=== PATIENT | female | born 1980 | race Caucasian/White ===

== ENCOUNTER 2017-03-10 22:07 | Emergency (ER) | payer SELFPAY ==
[2017-03-10 22:30] VITALS: BP 150/65; PULSE 87; TEMP 98.4; BMI 29.1
--- NOTE | 2017-03-10 23:17 | PDOC ---
History of Present Illness - History of Present Illness Initial Comments: 03/11/17 00:05 Patient is a 37 year old female with no significant medical hx who is presenting to the ED for right eye swelling since today. Patient reports she went to her doctor and was prescribed antibiotics and pain medication for strep throat. The patient picked up the ibuprofen from the pharmacy but could not afford the antibiotics. She began taking the ibuprofen and developed swelling to her right eyelid which she suspects is an allergic reaction. Denies any wheezing or rash. The patient was asked in [place] of [place] if she had any allergies to medication, which she denied, and was asked if she could be given penicillin, which she accepted. The patient states she's breast feeding. The patient also fell one week ago and since has been having left rib cage pain with some shortness of breath. She states that her PMD wants her to receive a chest x-ray. PCP: Viola Light MD <Veronika Ingram - Last Filed: 03/11/17 00:15> <Lynda Ruiz - Last Filed: 03/15/17 16:50> - General Chief Complaint: Allergic Reaction Stated Complaint: ALLERGIC REACTION Time Seen by Provider: 03/10/17 22:46 Past History <Veronika Ingram - Last Filed: 03/11/17 00:15> - Psycho/Social/Smoking Cessation Hx Anxiety: No Suicidal Ideation: No Smoking History: Never smoked Have you smoked in the past 12 months: No Information on smoking cessation initiated: No Hx Alcohol Use: No Drug/Substance Use Hx: No Substance Use Type: None <Lynda Ruiz - Last Filed: 03/15/17 16:50> - Past Medical History Allergies/Adverse Reactions: Allergies Allergy/AdvReac Type Severity Reaction Status Date / Time No Known Allergies Allergy Verified 03/10/17 22:29 Review of Systems - Review of Systems Comments:: 03/11/17 00:08 CONSTITUTIONAL: Absent: fever, chills, diaphoresis, generalized weakness, malaise, loss of appetite HEENT: Present: right eyelid swelling, throat pain Absent: rhinorrhea, nasal congestion, mouth swelling, ear pain, eye pain, visual changes CARDIOVASCULAR: Absent: chest pain, syncope, palpitations, irregular heart rate, lightheadedness , peripheral edema RESPIRATORY: Present: shortness of breath Absent: cough, dyspnea with exertion, orthopnea, wheezing, stridor, hemoptysis GASTROINTESTINAL: Absent: abdominal pain, abdominal distension, nausea, vomiting, diarrhea, constipation, melena, hematochezia GENITOURINARY: Absent: dysuria, frequency, urgency, hesitancy, hematuria, flank pain, genital pain MUSCULOSKELETAL: Present: left rib cage pain Absent: myalgia, arthralgia, joint swelling SKIN: Absent: rash, itching, pallor HEMATOLOGIC/IMMUNOLOGIC: Absent: easy bleeding, easy bruising, lymphadenopathy, frequent infections ENDOCRINE: Absent: unexplained weight gain, unexplained weight loss, heat intolerance, cold intolerance NEUROLOGIC: Absent: headache, focal weakness or paresthesia, dizziness, unsteady gait, seizure, mental status changes, bladder or bowel incontinence. PSYCHIATRIC: Absent: anxiety, depression, suicidal or homicidal ideation, hallucinations <Veronika Ingram - Last Filed: 03/11/17 00:15> *Physical Exam - Vital Signs Last Vital Signs Temp Pulse Resp BP Pulse Ox 98.4 F 87 18 150/65 99 03/10/17 22:27 03/10/17 22:27 03/10/17 22:27 03/10/17 22:27 03/10/17 22:27 - Physical Exam Comments: 03/11/17 00:11 GENERAL: Well developed, well nourished. Awake and alert. No acute distress. HEENT: Normocephalic, atraumatic. PERRLA, EOMI. Edematous swelling to right eyelid. No conjunctival pallor. Sclera are non-icteric. Moist mucous membranes. Erythema and exudates to the oropharynx with enlarged tonsils. NECK: Supple. Full ROM. No JVD. Carotid pulses 2+ and symmetric, without bruits. No thyromegaly. No lymphadenopathy. CARDIOVASCULAR: Regular rate and rhythm. No murmurs, rubs, or gallops. Distal pulses are 2+ and symmetric. PULMONARY: No evidence of respiratory distress. Lungs clear to auscultation bilaterally. No wheezing, rales or rhonchi. ABDOMINAL: Soft. Non-tender. Non-distended. No rebound or guarding. No organomegaly. Normoactive bowel sounds. MUSCULOSKELETAL: Normal range of motion at all joints. No bony deformities or tenderness. No CVA tenderness. EXTREMITIES: No cyanosis. No clubbing. No edema. No calf tenderness. SKIN: Warm and dry. Normal capillary refill. No rashes. No jaundice. NEUROLOGICAL: Alert, awake, appropriate. Cranial nerves 2-12 intact. Normal speech. Gait is normal without ataxia. PSYCHIATRIC: Cooperative. Good eye contact. Appropriate mood and affect. <Veronika Ingram - Last Filed: 03/11/17 00:15> - Vital Signs Last Vital Signs Temp Pulse Resp BP Pulse Ox 98.4 F 87 18 150/65 99 03/10/17 22:27 03/10/17 22:27 03/10/17 22:27 03/10/17 22:27 03/10/17 22:27 <Lynda Ruiz - Last Filed: 03/15/17 16:50> ED Treatment Course - Medications Given in the ED: ED Medications Discontinued Medications Generic Name Dose Route Start Last Admin Trade Name Freq PRN Reason Stop Dose Admin Diphenhydramine HCl 25 mg 03/10/17 23:18 03/10/17 23:37 Benadryl - PO 03/10/17 23:19 25 mg ONCE ONE Administration Prednisone 40 mg 03/10/17 23:18 03/10/17 23:37 Deltasone - PO 03/10/17 23:19 40 mg ONCE ONE Administration <Veronika Ingram - Last Filed: 03/11/17 00:15> Medical Decision Making - Medical Decision Making 03/11/17 03:39 27-year-old female who had been diagnosed earlier today with pharyngitis went to the pharmacy and fill the prescription for ibuprofen. She did not have enough money to also febrile prescription for antibiotics. Abscess taking her Motrin. She knows she had eyelid swelling. He is the emergency department. Patient received prednisone and Benadryl. Ice pack was placed on her eyelids. The swelling. Decrease. She does not have any wheezing or any risk for respiratory difficulties. Plan further discussion with the patient, it was discussed if she would want to have IM injection of penicillin instead of taking 10 days of oral antibiotics and she agrees with the injection Patient is breast-feeding currently Patient later stated that she fell recently and her PCP gave her a RX for radiolgraph Patient had a negative test and radiograph of her left side was taken. No rib fractures were appreciated IMP pharyngitis/ibuprofen allergy 03/15/17 16:49 <Lynda Ruiz - Last Filed: 03/15/17 16:50> *DC/Admit/Observation/Transfer - Attestations Scribe Attestion: 03/11/17 00:13 Documentation prepared by Veronika Ingram, acting as medical aides teacher for Lynda Ruiz MD. <Veronika Ingram - Last Filed: 03/11/17 00:15> <Lynda Ruiz - Last Filed: 03/15/17 16:50> Diagnosis at time of Disposition: Allergic drug reaction Qualifiers: Encounter type: initial encounter Qualified Code(s): T78.40XA - Allergy, unspecified, initial encounter Pharyngitis Qualifiers: Pharyngitis/tonsillitis etiology: unspecified etiology Qualified Code(s): J02.9 - Acute pharyngitis, unspecified - Discharge Dispostion Disposition: HOME Condition at time of disposition: Stable - Referrals Referrals: Viola Light MD [Primary Care Provider] - - Patient Instructions Printed Discharge Instructions: DI for Adverse Drug Reaction -- Allergic, DI for Strep Throat Additional Instructions: DO NOT TAKE IBUPROFEN Drink cold water,use throat lozenges to help alleviate your throat pain Return for any worsening symptoms Print Language: YI
[2017-03-10] MEDS ORDERED: diphenhydrAMINE HCL 25 MG CAPSULE (FP) PO ONE ×2 (23:18→23:33)
[2017-03-10] MEDS ORDERED: predniSONE 20 MG TABLET (UD) PO ONE (23:18)
[2017-03-10] MEDS ORDERED: predniSONE 20 MG TABLET (UD) ONE (23:33)
[2017-03-11] MEDS ORDERED: PENICILLIN G BENZATHINE 1,200,000 UNIT/2 ML PFS IM ONE (00:03)
[2017-03-11] MEDS ORDERED: predniSONE 20 MG TABLET (UD) PO ONE (02:26)
[2017-03-11] MEDS ORDERED: PENICILLIN G BENZATHINE 2,400,000 UNIT/4 ML PFS ONE (04:12)
[2017-03-11] MEDS ORDERED: predniSONE 20 MG TABLET (UD) ONE (04:12)
== END 2017-03-11 04:44 | disposition home or self-care (01) ==
LOC: JER 22:07
DX: T39.315A Adverse effect of propionic acid derivatives, initial encounter (principal); J02.9 Acute pharyngitis, unspecified; R07.81 Pleurodynia; R07.89 Other chest pain; W19.XXXA Unspecified fall, initial encounter; Y93.89 Activity, other specified; Y92.89 Other specified places as the place of occurrence of the external cause
CPT/HCPCS: 71020-TC; 71101-TC; 84703; 99282-25

== ENCOUNTER 2018-11-27 15:10 | Emergency (ER) | payer SELFPAY ==
[2018-11-27 15:25] VITALS: BP 103/63; PULSE 66; TEMP 98.8; BMI 29.9
--- NOTE | 2018-11-27 16:00 | PDOC ---
History of Present Illness - General History Source: Patient Exam Limitations: No Limitations <Hakeem Hartley - Last Filed: 11/27/18 16:09> - General History Source: Patient Exam Limitations: No Limitations, Language Barrier - History of Present Illness Initial Comments: 11/27/18 16:22 The patient is a 38 year old female, with no significant past medical history of who presents to the emergency department via EMS with chest pain since earlier today. The patient notes she received bad news today that her uncle . After the news, the patient became upset and anxious accompanied by lightheadedness, chest discomfort, difficulty breathing, and generalized weakness. The patient notes EMS, gave her Aspirin. Allergies: NKDA Past surgical history: None reported Social history: None reported <Charles Figueroa - Last Filed: 11/27/18 16:27> - General Chief Complaint: Chest Pain Stated Complaint: CHEST PAIN Time Seen by Provider: 11/27/18 15:28 Past History - Past Medical History COPD: No - Suicide/Smoking/Psychosocial Hx Smoking History: Never smoked Have you smoked in the past 12 months: No Information on smoking cessation initiated: No Hx Alcohol Use: No Drug/Substance Use Hx: No Substance Use Type: None <Hakeem Hartley - Last Filed: 11/27/18 16:09> <Charles Figueroa - Last Filed: 11/27/18 16:27> - Past Medical History Allergies/Adverse Reactions: Allergies Allergy/AdvReac Type Severity Reaction Status Date / Time No Known Allergies Allergy Verified 11/27/18 15:24 Review of Systems - Review of Systems Comments:: 11/27/18 16:23 GENERAL/CONSTITUTIONAL: No fever or chills. (+) generalized weakness. HEAD, EYES, EARS, NOSE AND THROAT: No change in vision. No ear pain or discharge. No sore throat. CARDIOVASCULAR: (+)chest discomfort. (+) difficulty breathing RESPIRATORY: No cough, wheezing, or hemoptysis. GASTROINTESTINAL: No nausea, vomiting, diarrhea or constipation. GENITOURINARY: No dysuria, frequency, or change in urination. MUSCULOSKELETAL: No joint or muscle swelling or pain. No neck or back pain. SKIN: No rash NEUROLOGIC: (+) lightheadedness. No headache, vertigo, loss of consciousness, or change in strength/sensation. ENDOCRINE: No increased thirst. No abnormal weight change. HEMATOLOGIC/LYMPHATIC: No anemia, easy bleeding, or history of blood clots. ALLERGIC/IMMUNOLOGIC: No hives or skin allergy. All Other Systems: Reviewed and Negative <Charles Figueroa - Last Filed: 11/27/18 16:27> *Physical Exam - Vital Signs Last Vital Signs Temp Pulse Resp BP Pulse Ox 98.8 F 66 18 103/63 99 11/27/18 15:23 11/27/18 15:23 11/27/18 15:23 11/27/18 15:23 11/27/18 15:23 <Hakeem Hartley - Last Filed: 11/27/18 16:09> - Vital Signs Last Vital Signs Temp Pulse Resp BP Pulse Ox 98.8 F 66 18 103/63 99 11/27/18 15:23 11/27/18 15:23 11/27/18 15:23 11/27/18 15:23 11/27/18 15:23 - Physical Exam Comments: 11/27/18 16:26 GENERAL: (+) tearful. Awake, alert, and fully oriented, in no acute distress HEAD: No signs of trauma EYES: PERRLA, EOMI, sclera anicteric, conjunctiva clear ENT: Auricles normal inspection, hearing grossly normal, nares patent, oropharynx clear without exudates. Moist mucosa NECK: Normal ROM, supple, no lymphadenopathy, JVD, or masses LUNGS: Breath sounds equal, clear to auscultation bilaterally. No wheezes, and no crackles HEART: Regular rate and rhythm, normal S1 and S2, no murmurs, rubs or gallops ABDOMEN: Soft, nontender, normoactive bowel sounds. No guarding, no rebound. No masses EXTREMITIES: Normal range of motion, no edema. No clubbing or cyanosis. No cords, erythema, or tenderness NEUROLOGICAL: Cranial nerves II through XII grossly intact. Normal speech, normal gait SKIN: Warm, Dry, normal turgor, no rashes or lesions noted. <Charles Figueroa - Last Filed: 11/27/18 16:27> Moderate Sedation - Procedure Monitoring Vital Signs: Procedure Monitoring Vital Signs Temperature 98.8 F 11/27/18 15:23 Pulse Rate 66 11/27/18 15:23 Respiratory Rate 18 11/27/18 15:23 Blood Pressure 103/63 11/27/18 15:23 O2 Sat by Pulse Oximetry (%) 99 11/27/18 15:23 <Hakeem Hartley - Last Filed: 11/27/18 16:09> - Procedure Monitoring Vital Signs: Procedure Monitoring Vital Signs Temperature 98.8 F 11/27/18 15:23 Pulse Rate 66 11/27/18 15:23 Respiratory Rate 18 11/27/18 15:23 Blood Pressure 103/63 11/27/18 15:23 O2 Sat by Pulse Oximetry (%) 99 11/27/18 15:23 <Ion Figueroamaryann - Last Filed: 11/27/18 16:27> Heart Score/ECG Review #1 ECG reviewed & interpreted by me at: 15:20 11/27/18 15:58 NSR 64, no std/patrick, normal axis, normal intervals, T wave flat III, QTC 460 msec. normal ECG <Hakeem Hartley - Last Filed: 11/27/18 16:09> Medical Decision Making - Medical Decision Making 11/27/18 16:09 A portion of this note was documented by scribe services under my direction. I have reviewed the details of the note, within reason, and agree with the documentation with the following case summary and management plan written by me. Patient treated in the ED. Nursing notes are reviewed and incorporated into the medical decision-making. Vital signs reviewed. Peripheral IV access obtained by the nurse, laboratory studies are drawn and sent, reviewed and interpreted by myself. Vital Signs Temp Pulse Resp BP Pulse Ox 98.8 F 66 18 103/63 99 11/27/18 15:23 11/27/18 15:23 11/27/18 15:23 11/27/18 15:23 11/27/18 15:23 38 year old female c/ no pmh p/w atypical chest pain. The patient received news that her uncle that she was very close to had recently today. The patient soon became very upset and anxious, and felt lightheaded and dizzy and with chest discomfort and difficulty breathing and generalized weakness. The patient called EMS which EMS gave her aspirin. She feels tearful now but the patient reports no chest pain. ECG is normal. I feel very much that this is a reaction to her news. She does not smoke. Does not have family history of [place]. No medical problems. We will arrange follow up appointment with PMD for IM. Tanya had scheduled an appointment. Will d/c patient home with supportive care. I discussed the physical exam findings, ancillary test results and final diagnoses with the patient. I answered all of the patient's questions. The patient was satisfied with the care received and felt comfortable with the discharge plan and treatment plan. The patient will call their primary care physician within 24 hours to arrange follow-up and will return to the Emergency Department with any new, persistant or worsening symptoms. <Hakeem Hartley - Last Filed: 11/27/18 16:09> *DC/Admit/Observation/Transfer - Discharge Dispostion Decision to Admit order: No <Hakeem Hartley - Last Filed: 11/27/18 16:09> - Attestations Scribe Attestion: 11/27/18 16:27 Documentation prepared by Charles Figueroa, acting as medical staff credentialing coordinator for Hakeem Hartley MD, MD <Charles Figueroa - Last Filed: 11/27/18 16:27> Diagnosis at time of Disposition: Atypical chest pain - Discharge Dispostion Disposition: HOME Condition at time of disposition: Stable - Referrals Referrals: Mushtaq Ray MD [Staff Physician] - - Patient Instructions Printed Discharge Instructions: DI for Atypical Chest Pain Additional Instructions: Your EKG is normal. Please take several days to rest. I suspect that you discomfort is from the recent stress you experienced. Please go to the doctor's appointment that we have scheduled. Please drink plenty of fluids and rest.
--- NOTE | 2018-11-28 09:28 | EKG ---
Test Reason : Blood Pressure : / mmHG Vent. Rate : 064 BPM Atrial Rate : 064 BPM P-R Int : 170 ms QRS Dur : 080 ms QT Int : 446 ms P-R-T Axes : 022 050 029 degrees QTc Int : 460 ms NORMAL SINUS RHYTHM NORMAL ECG NO PREVIOUS ECGS AVAILABLE Confirmed by Ezio Vázquez MD ([id number]) on 11/28/2018 9:27:50 AM Referred By: Confirmed By:Ezio Vázquez MD
== END 2018-11-27 16:04 | disposition home or self-care (01) ==
LOC: JER 15:10
DX: R07.9 Chest pain, unspecified (principal); Z63.4 Disappearance and death of family member
CPT/HCPCS: 93005; 93010; 99282-25

== ENCOUNTER 2021-10-06 12:23 | Emergency (ER) | payer OTHER ==
[2021-10-06 12:29] VITALS: BP 127/85; PULSE 76; TEMP 98; BMI 29.1
[2021-10-06] MEDS ORDERED: KETOROLAC TROMETHAMINE 30 MG/1 ML VIAL IM ONE (13:27)
[2021-10-06] MEDS ORDERED: KETOROLAC TROMETHAMINE 30 MG/1 ML VIAL ONE (13:31)
== END 2021-10-06 13:39 | disposition home or self-care (01) ==
LOC: JER 12:23
PROC: 3E0233Z Introduction of Anti-inflammatory into Muscle, Percutaneous Approach (ICD-10-PCS; principal; 2021-10-06)
DX: M54.12 Radiculopathy, cervical region (principal)
CPT/HCPCS: 73030-TC-LT-FY; 96372; 99283-25

== ENCOUNTER 2021-12-02 14:18 | Emergency (ER) | payer OTHER ==
[2021-12-02 14:29] VITALS: BP 114/71; PULSE 66; TEMP 98.2; BMI 29.9
[2021-12-02] MEDS ORDERED: SODIUM CHLORIDE 1,000 ML IV STA (15:43)
== END 2021-12-02 18:49 | disposition home or self-care (01) ==
LOC: JER 14:18
PROC: 3E0337Z Introduction of Electrolytic and Water Balance Substance into Peripheral Vein, Percutaneous Approach (ICD-10-PCS; principal; 2021-12-02)
DX: S06.0X0A Concussion without loss of consciousness, initial encounter (principal); W22.8XXA Striking against or struck by other objects, initial encounter; Y92.002 Bathroom of unspecified non-institutional (private) residence as the place of occurrence of the external cause
CPT/HCPCS: 70450-TC; 99284-25

== ENCOUNTER 2022-01-20 21:39 | Emergency (ER) | payer OTHER ==
[2022-01-20 21:55] VITALS: BP 113/69; PULSE 83; TEMP 98.8; BMI 30.2
[2022-01-20 22:25] LABS: HCG,QUALITATIVE URINE Negative
[2022-01-20 22:39] LABS: ALBUMIN 3.9 g/dl (3.4-5.0); BILIRUBIN,TOTAL 0.9 mg/dl (0.2-1); CALCIUM 9.2 mg/dl (8.5-10); CREATININE 0.6 mg/dl (0.55-1.3); TOT PROT 6.8 g/dl (6.4-8.2)
[2022-01-20] MEDS ORDERED: KETOROLAC TROMETHAMINE 30 MG/1 ML VIAL IVPUSH ONE (23:49)
[2022-01-20] MEDS ORDERED: KETOROLAC TROMETHAMINE 30 MG/1 ML VIAL ONE (23:58)
== END 2022-01-21 00:10 | disposition home or self-care (01) ==
LOC: FER 21:39
PROC: 3E0233Z Introduction of Anti-inflammatory into Muscle, Percutaneous Approach (ICD-10-PCS; principal; 2022-01-20)
DX: S30.23XA Contusion of vagina and vulva, initial encounter (principal); W09.8XXA Fall on or from other playground equipment, initial encounter
CPT/HCPCS: 36415; 74177-TC; 80053; 81003; 84703; 96372; 99285-25; Q9967

== ENCOUNTER 2022-03-06 18:29 | Emergency (ER) | payer OTHER ==
[2022-03-06 18:50] VITALS: BP 118/81; PULSE 92; TEMP 99; BMI 30.2
== END 2022-03-06 20:10 | disposition home or self-care (01) ==
LOC: FER 18:29
DX: J40 Bronchitis, not specified as acute or chronic (principal)
CPT/HCPCS: 0241U-QW; 99283-25

== ENCOUNTER 2022-04-30 09:45 | Emergency (ER) | payer OTHER ==
[2022-04-30] MEDS ORDERED: FAMOTIDINE 20 MG TABLET PO ONE (10:00)
[2022-04-30] MEDS ORDERED: predniSONE 20 MG TABLET (UD) PO ONE (10:00)
[2022-04-30] MEDS ORDERED: LORATADINE 10 MG TABLET PO ONE (10:00)
[2022-04-30 10:01] VITALS: BP 120/77; PULSE 83; TEMP 99; BMI 29.9
[2022-04-30] MEDS ORDERED: predniSONE 20 MG TABLET (UD) ONE (10:03)
[2022-04-30] MEDS ORDERED: LORATADINE 10 MG TABLET ONE (10:03)
[2022-04-30] MEDS ORDERED: FAMOTIDINE 20 MG TABLET ONE (10:03)
== END 2022-04-30 10:39 | disposition home or self-care (01) ==
LOC: FER 09:45
DX: T78.40XA Allergy, unspecified, initial encounter (principal)
CPT/HCPCS: 99283-25

== ENCOUNTER 2022-09-11 10:12 | Emergency (ER) | payer OTHER | END 2022-09-11 11:00 | disposition home or self-care (01) | LOC: FER 10:12 | DX: K02.9 Dental caries, unspecified (principal) | CPT/HCPCS: 99282-25 ==

== ENCOUNTER 2023-01-17 07:35 | Emergency (ER) | payer OTHER ==
[2023-01-17 07:49] VITALS: BP 121/62; PULSE 80; RESP 18; TEMP 98.7; BMI 28.6
[2023-01-17] MEDS ORDERED: ALBUTEROL SO4 2.5/IPRATROPIUM 0.5 INH SOL 3 ML VIAL.NEB. NEB ONE ×2 (07:55→08:16)
[2023-01-17] MEDS ORDERED: IBUPROFEN 600 MG TABLET (FP) PO ONE ×2 (07:55→08:16)
== END 2023-01-17 09:35 | disposition home or self-care (01) ==
LOC: FER 07:35
PROC: 3E0F7GC Introduction of Other Therapeutic Substance into Respiratory Tract, Via Natural or Artificial Opening (ICD-10-PCS; principal; 2023-01-17)
DX: R05.1 Acute cough (principal); R09.81 Nasal congestion; Z20.822 Contact with and (suspected) exposure to COVID-19
CPT/HCPCS: 0241U-QW; 71045-TC-FY; 99284-25

== ENCOUNTER 2023-05-14 11:05 | Emergency (ER) | payer OTHER ==
[2023-05-14] MEDS ORDERED: IBUPROFEN 600 MG TABLET (FP) PO ONE ×2 (11:15→11:21)
[2023-05-14 11:21] VITALS: BP 132/75; PULSE 84; RESP 18; TEMP 98.7; BMI 31.1
== END 2023-05-14 12:06 | disposition home or self-care (01) ==
LOC: FER 11:05
DX: M25.572 Pain in left ankle and joints of left foot (principal)
CPT/HCPCS: 73590-TC-LT-FY; 73610-TC-LT-FY; 73630-TC-LT; 99283-25

== ENCOUNTER 2023-09-13 12:24 | Emergency (ER) | payer OTHER ==
[2023-09-13 12:32] VITALS: RESP 18; TEMP 98.7; BMI 30.6
[2023-09-13] MEDS ORDERED: ACETAMINOPHEN 500 MG TABLET (FP) PO ONE (12:47)
[2023-09-13] MEDS ORDERED: LIDOCAINE 5% TOPICAL PATCH TP ONE (12:47)
[2023-09-13] MEDS ORDERED: ACETAMINOPHEN 500 MG TABLET (FP) ONE (12:59)
[2023-09-13] MEDS ORDERED: LIDOCAINE 5% TOPICAL PATCH ONE (12:59)
[2023-09-13 13:23] LABS: HEMATOCRIT 41.5 % (32.4-45.2); HEMOGLOBIN 13.8 G/dL (10.7-15.3); MCH 30.4 pg (25.7-33.7); MCHC 33.1 g/dl (32.0-36.0); MEAN CELL VOLUME 91.8 fl (80-96); MEAN PLT VOLUME 7.9 fl (7.5-11.1); PLATELET COUNT 234.7 10^3/uL (134-434); RBC 4.52 10^6/uL (3.60-5.2); RDW 13.3 % (11.6-15.6); WHITE BLOOD COUNT 7.7 10^3/uL (4.0-10.8)
[2023-09-13 13:43] LABS: INR 0.93 (0.83-1.09); PROTHROMBIN TIME (PATIENT) 10.8 SEC (9.7-13.0)
[2023-09-13 13:45] LABS: ACTIVATED PTT 33.8 SECONDS (25.2-36.5)
[2023-09-13 13:49] LABS: ALBUMIN 4.2 g/dl (3.4-5.0); CALCIUM 8.9 mg/dl (8.5-10.1); CREATININE 0.5 mg/dl (0.6-1.3); POTASSIUM 3.9 mmol/L (3.5-5.1); TOT PROT 6.7 g/dl (6.4-8.2)
[2023-09-13 14:56] VITALS: BP 120/80; PULSE 76
[2023-09-13] MEDS ORDERED: LIDOCAINE PATCH REMOVAL MC ONE (22:00)
== END 2023-09-13 15:03 | disposition home or self-care (01) ==
LOC: FER 12:24
DX: M25.512 Pain in left shoulder (principal); R07.9 Chest pain, unspecified; R06.02 Shortness of breath; R05.9 Cough, unspecified; Z20.822 Contact with and (suspected) exposure to COVID-19
CPT/HCPCS: 0241U-QW; 36415; 71046-TC-FY; 80053; 84484; 85027; 85610; 85730; 93005; 99285-25

== ENCOUNTER 2024-05-12 16:39 | Emergency (ER) | payer OTHER ==
[2024-05-12 17:10] VITALS: BP 115/67; PULSE 67; RESP 18; TEMP 98.4; BMI 30.7
[2024-05-12] MEDS ORDERED: ONDANSETRON 4 MG/2 ML VIAL ONE (17:35)
[2024-05-12] MEDS ORDERED: ACETAMINOPHEN INJECTION 100 ML IVPB ONE (17:36)
[2024-05-12] MEDS ORDERED: FAMOTIDINE 20 MG/50 ML IVPB 20 MG/50 ML MG IVPB ONE (17:36)
[2024-05-12 17:42] LABS: HEMATOCRIT 41.6 % (32.4-45.2); HEMOGLOBIN 13.6 G/dL (10.7-15.3); MCH 30.2 pg (25.7-33.7); MCHC 32.6 g/dl (32.0-36.0); MEAN CELL VOLUME 92.8 fl (80-96); MEAN PLT VOLUME 7.9 fl (7.5-11.1); PLATELET COUNT 260.4 10^3/uL (134-434); RBC 4.48 10^6/uL (3.60-5.2); RDW 13.3 % (11.6-15.6); WHITE BLOOD COUNT 8.3 10^3/uL (4.0-10.8)
[2024-05-12] MEDS ORDERED: MAG HYDROX/AL HYDROX/SIMETH 30 ML UNIT-DOSE CUP ONE (17:43)
[2024-05-12] MEDS: SODIUM CHLORIDE 0.9% 500 ML INFUS.BAG IV ONE (17:45)
[2024-05-12] MEDS: MAG HYDROX/AL HYDROX/SIMETH 30 ML UNIT-DOSE CUP PO ONE (17:45)
[2024-05-12] MEDS: ONDANSETRON 4 MG/2 ML VIAL IVPUSH ONE (17:50)
[2024-05-12] MEDS: ACETAMINOPHEN 1000 MG/100 ML BAG IVPB ONE (17:55)
[2024-05-12 17:58] LABS: PLATELET ESTIMATE ADEQUATE
[2024-05-12 18:02] LABS: ALBUMIN 4.1 g/dl (3.4-5.0); BILIRUBIN,TOTAL 1.3 mg/dl (0.2-1); CREATININE 0.5 mg/dl (0.6-1.3); MAGNESIUM 2.1 mg/dL (1.8-2.4); POTASSIUM 4.1 mmol/L (3.5-5.1); TOT PROT 6.6 g/dl (6.4-8.2)
[2024-05-12] MEDS: FAMOTIDINE 20 MG/50 ML IVPB 20 MG/50 ML MG IVPB ONE (18:09)
== END 2024-05-12 20:59 | disposition home or self-care (01) ==
LOC: FER 16:39
PROC: 3E033GC Introduction of Other Therapeutic Substance into Peripheral Vein, Percutaneous Approach (ICD-10-PCS; principal; 2024-05-12)
PROC: 3E033GC Introduction of Other Therapeutic Substance into Peripheral Vein, Percutaneous Approach (ICD-10-PCS; 2024-05-12)
PROC: 3E033NZ Introduction of Analgesics, Hypnotics, Sedatives into Peripheral Vein, Percutaneous Approach (ICD-10-PCS; 2024-05-12)
DX: R10.11 Right upper quadrant pain (principal); R10.13 Epigastric pain; R11.0 Nausea
CPT/HCPCS: 36415; 74177-TC; 80053; 81003; 81025; 83690; 83735; 84484; 84703; 85027; 93005; 99285-25; J0131; Q9967